=== PATIENT | male | born 1980 | race Caucasian/White ===

== ENCOUNTER 2017-08-23 01:51 | Emergency (ER) | payer BC, SELFPAY ==
[2017-08-23 02:52] LABS: #Basophils 0.1 thou/uL (0.0-0.2); #Eosinphils 0.4 thou/uL (0.0-0.7); #Lymphocytes 2.2 thou/uL (1.20-3.40); #Monocytes 0.5 thou/uL (0.11-0.59); %Basophils 0.8 % (0.0-1.0); %Eosinophils 3.5 % (0.0-10.0); %Lymphocytes 19.9 % (21.0-51.0); %Monocytes 4.8 % (0.0-10.0); Mean Platelet Volume 7.9 fL (7.4-10.4); Red Blood Cell (RBC) Count 5.03 mill/uL (4.70-6.10); White Blood Cell (WBC) Count 11.2 thou/uL (4.8-10.8)
[2017-08-23 03:05] LABS: ALT (SGPT) 19 U/L (8-55); AST (SGOT) 15 U/L (5-34); Alkaline Phosphatase 84 U/L (40-150); Anion Gap 11 mmol/L (10-20); BUN (Urea Nitrogen) 14 mg/dL (8.9-20.6); Bilirubin, Total 0.5 mg/dL (0.2-1.2); Calc. Creatinine Clearance 0 mL/min (70-130); Carbon Dioxide 29 mmol/L (22-29); Chloride 101 mmol/L (98-107); Estimated GFR-MDRD 72; Globulin 3.5 g/dL (2.4-3.5); Protein, Total 7.9 g/dL (6.0-8.3)
[2017-08-23 03:10] LABS: Troponin I Less than 0.010 ng/mL (< 0.028)
[2017-08-23] MEDS ORDERED: Ketorolac Tromethamine 60 MG/2 ML VIAL ONE (04:51)
[2017-08-23] MEDS ORDERED: Lidocaine Viscous Sol 2% 15 ml UD Cup ONE (04:51)
[2017-08-23] MEDS ORDERED: Mag-Al 1200 mg/1200 mg/30 ML UDCUP ONE (04:51)
[2017-08-23] MEDS ORDERED: HYDROcodone/Acetaminophen 10/325 mg Tablet ONE (04:51)
[2017-08-23 04:58] LABS: CK (CPK) 99 U/L (30-200); Lipase 23 U/L (8-78)
--- NOTE | 2017-08-23 07:09 | RAD ---
CHEST 2 VIEWS: Date: 08/23/17 HISTORY: Chest pain x1 week. COMPARISON: 08/12/11. FINDINGS: Normal cardiac silhouette. Pulmonary vessels and hilum are normal. Costophrenic angles are clear. No consolidation or mass. No pneumothorax or osseous abnormalities. IMPRESSION: No acute cardiopulmonary process. POS: PPP
== END 2017-08-23 05:21 | disposition home or self-care (01) ==
LOC: ERS 01:51
DX: K21.0 Gastro-esophageal reflux disease with esophagitis (principal); F17.210 Nicotine dependence, cigarettes, uncomplicated; Z79.899 Other long term (current) drug therapy
CPT/HCPCS: 36415; 71020; 80053; 82553; 83690; 83880; 84484; 85025; 93005; 96372; J1885

== ENCOUNTER 2023-02-19 17:58 | Emergency (ER) | payer BC, SELFPAY ==
[~2023-02-19 17:58] MED LIST: Iopamidol-370 76% 500 ML MDV (1 ML CHARGE) ONE
[2023-02-19] MEDS ORDERED: Vancomycin 1 GM/200 ML (FROZEN) BAG ONE ×2 (18:10→19:18)
[2023-02-19] MEDS ORDERED: Cefepime 2 GM VIAL ONE (18:10)
[2023-02-19 18:22] LABS: #Basophils 0.1 thou/uL (0.0-0.2); #Eosinphils 0.1 thou/uL (0.0-0.7); #Monocytes 0.5 thou/uL (0.11-0.59); #Neutrophils 5.7 thou/uL (1.40-6.50); %Basophils 0.7 % (0.0-1.0); %Eosinophils 1.5 % (0.0-10.0); %Lymphocytes 11.7 % (21.0-51.0); %Monocytes 7.1 % (0.0-10.0); %Neutrophils 78.7 % (42.0-75.0); Hemoglobin 14.4 g/dL (14.0-18.0); Mean Corpuscular HGB CONC 34.4 g/dL (32.0-36.0); Mean Corpuscular Hemoglobin 30.2 pg (27.0-31.0); Mean Corpuscular Volume 87.8 fl (78.0-98.0); Mean Platelet Volume 9.6 fL (7.4-10.4); Platelet Count 214 10x3/uL (130-400); RBC Distribution Width 13.4 % (11.5-14.5); Red Blood Cell (RBC) Count 4.77 mill/uL (4.70-6.10); White Blood Cell (WBC) Count 7.2 10x3/uL (4.8-10.8)
[2023-02-19 18:24] LABS: Actual Bicarbonate (HCO3v) 22.6 mEq/L (22-28); Base Excess -0.5 mEq/L (-2.0 to +3.0); Calcium, Ionized (venous) 1.07 mmol/L (1.16-1.32); Chloride (VBG) 100 mmol/L (98-106); Hematocrit-VBG 45 % (42.0-52.0); Hemoglobin (Hb) 15.3 g/dL (13.2-17.3); Potassium (VBG) 3.88 mmol/L (3.70-5.30); Sodium 135.1 mmol/L (133-146); pH (venous) 7.453 (7.32-7.43)
[2023-02-19 18:50] LABS: ALT (SGPT) 27 U/L (8-55); AST (SGOT) 21 U/L (5-34); Albumin 4.4 g/dL (3.5-5.0); Alkaline Phosphatase 82 U/L (40-110); Anion Gap 14 mmol/L (10-20); BUN (Urea Nitrogen) 13 mg/dL (8.9-20.6); Bilirubin, Total 0.5 mg/dL (0.2-1.2); Calc. Creatinine Clearance 0 mL/min (70-130); Calcium 9.5 mg/dL (7.8-10.44); Carbon Dioxide 25 mmol/L (22-29); Chloride 99 mmol/L (98-107); Estimated GFR 55; Globulin 3.4 g/dL (2.4-3.5); Glucose 147 mg/dL (70-105); Potassium 3.8 mmol/L (3.5-5.1); Protein, Total 7.8 g/dL (6.0-8.3); Sodium 134 mmol/L (136-145)
[2023-02-19 19:41] LABS: SARS-CoV-2 NAA Rapid Test Not Detected (NotDetected)
[2023-02-19 20:21] LABS: Bacteria/HPF None Seen HPF (None Seen); Bilirubin Negative (Negative); Blood, Urine Negative (Negative); CAUTI Indications for Culture Fever or rigors; Clarity Clear (Clear); Glucose, Urine (Dipstick) Normal (Negative); Ketone, Urine Negative (Negative); Leukocyte Negative Leu/uL (Negative); Nitrite Negative (Negative); Protein, Urine (Dipstick) Negative (Neg-Trace); RBC/HPF None Seen HPF (0-3); Specific Gravity, Urine 1.027 (1.002-1.036); Squamous Epithelial None Seen HPF (0-3); Urobilinogen Normal mg/dL (Less than 2); WBC/HPF 0-3 HPF (0-3)
[2023-02-19 20:40] LABS: Urine Culture Reflex No No
[2023-02-19] MEDS ORDERED: Ketorolac Tromethamine 30 MG/ML VIAL ONE (21:55)
== END 2023-02-19 22:10 | disposition home or self-care (01) ==
LOC: ERS 17:58
DX: R50.9 Fever, unspecified (principal); R00.0 Tachycardia, unspecified; Z20.822 Contact with and (suspected) exposure to COVID-19; K21.9 Gastro-esophageal reflux disease without esophagitis; F17.290 Nicotine dependence, other tobacco product, uncomplicated
CPT/HCPCS: 36415; 71045; 74177; 80053; 81001; 82805; 83605; 85025; 87040; 87086; 93005; 96361; 96365; 96367; 96375; J0692; J1885; J3370-JW; Q9967

== ENCOUNTER 2023-09-28 09:31 | Outpatient (CLI) | payer BC ==
[2023-09-28 10:30] LABS: #Basophils 0.1 10x3/uL (0.0-0.2); #Eosinphils 0.3 10x3/uL (0.0-0.5); #Monocytes 0.4 10x3/uL (0.0-1.1); #Neutrophils 4.1 10x3/uL (1.5-8.4); %Basophils 1.1 % (0.0-2.0); %Eosinophils 4.1 % (0.0-6.0); %Monocytes 6.3 % (0.0-10.0); %Neutrophils 62.9 % (40.0-75.0); Hematocrit 43.3 % (38.8-50.0); Hemoglobin 14.6 g/dL (13.5-17.5); Mean Corpuscular HGB CONC 33.7 g/dL (32.0-36.0); Mean Corpuscular Hemoglobin 29.1 pg (27.0-33.0); Mean Corpuscular Volume 86.4 fl (81.2-95.1); Mean Platelet Volume 10.1 fl (7.4-10.4); Platelet Count 259 10x3/uL (150-450); RBC Distribution Width 13.9 % (11.5-14.5); Red Blood Cell (RBC) Count 5.01 10x6/uL (4.32-5.72); White Blood Cell (WBC) Count 6.5 10x3/uL (3.5-10.5)
[2023-09-28 11:09] LABS: Anion Gap 13 mmol/L (10-20); BUN (Urea Nitrogen) 14 mg/dL (8.9-20.6); Calc. Creatinine Clearance 0 mL/min (70-130); Calcium 9.5 mg/dL (7.8-10.44); Carbon Dioxide 26 mmol/L (22-29); Chloride 104 mmol/L (98-107); Estimated GFR 91; Glucose 123 mg/dL (70-105); Potassium 4.6 mmol/L (3.5-5.1); Sodium 138 mmol/L (136-145)
== END 2023-09-28 09:32 | disposition home or self-care (01) ==
LOC: LABBT 09:31
PROVIDERS: ATTEND Surgery
DX: Z01.812 Encounter for preprocedural laboratory examination (principal); S31.109A Unspecified open wound of abdominal wall, unspecified quadrant without penetration into peritoneal cavity, initial encounter
CPT/HCPCS: 80048; 85025

== ENCOUNTER 2023-10-05 09:41 | Day surgery (SDC) | payer BC ==
[2023-09-28 10:03] VITALS: BMI 34.8
[2023-10-05] MEDS ORDERED: fentaNYL 50 mcg/mL 1 mL Vial ONE ×2 (11:04→13:33)
[2023-10-05] MEDS ORDERED: PROPOFOL 20 ML ONE (11:04)
[2023-10-05] MEDS ORDERED: Lidocaine 1% PF 5 ML VIAL ONE (11:06)
[2023-10-05] MEDS ORDERED: Ondansetron PF 4 MG/2 ML Vial ONE ×2 (11:17→12:25)
[2023-10-05] MEDS ORDERED: Ketorolac Tromethamine 30 MG (1 mL) VIAL ONE ×2 (11:17→13:02)
[2023-10-05] MEDS ORDERED: Bupivacaine 0.25% HCL 30 ML VIAL ONE (12:00)
[2023-10-05] MEDS ORDERED: EPINEPHrine 1 MG/ML VIAL ONE (12:00)
[2023-10-05] MEDS ORDERED: Sodium Chloride 0.9% 100 ML ONE (12:07)
[2023-10-05] MEDS ORDERED: CEFAZOLIN 2 GM VIAL ONE (12:07)
[2023-10-05] MEDS ORDERED: Dexamethasone 20 MG/5 ML VIAL ONE (12:25)
== END 2023-10-05 15:20 | disposition home or self-care (01) ==
LOC: SDC 09:41
PROVIDERS: ATTEND Surgery
PROC: 0H89XZZ Division of Perineum Skin, External Approach (ICD-10-PCS; principal; 2023-10-05)
DX: S31.109A Unspecified open wound of abdominal wall, unspecified quadrant without penetration into peritoneal cavity, initial encounter (principal); K60.3 Anal fistula; K21.9 Gastro-esophageal reflux disease without esophagitis; F17.290 Nicotine dependence, other tobacco product, uncomplicated; Z79.899 Other long term (current) drug therapy; Z88.5 Allergy status to narcotic agent; X58.XXXA Exposure to other specified factors, initial encounter
CPT/HCPCS: 88305; J0171; J0665; J1100; J1885; J2405; J2704; J3010; J3490

== ENCOUNTER 2024-06-22 13:58 | Emergency (ER) | payer BC ==
[2024-06-22 15:35] LABS: #Basophils 0.03 10x3/uL (0.0-0.2); %Basophils 0.3 % (0.0-1.0); %Eosinophils 2.9 % (0.0-10.0); %Lymphocytes 13.7 % (21.0-51.0); %Monocytes 4.7 % (0.0-10.0); %Neutrophils 78.1 % (42.0-75.0); Hematocrit 41.9 % (42.0-52.0); Hemoglobin 14.3 g/dL (14.0-18.0); Mean Corpuscular HGB CONC 34.1 g/dL (32.0-36.0); Mean Corpuscular Volume 87.8 fL (78.0-98.0); Mean Platelet Volume 10.4 fL (7.4-10.4); Platelet Count 222 10x3/uL (130-400); RBC Distribution Width 13.5 % (11.5-14.5); Red Blood Cell (RBC) Count 4.77 mill/uL (4.70-6.10)
[2024-06-22 15:55] LABS: ALT (SGPT) 22 U/L (8-55); AST (SGOT) 17 U/L (5-34); Alkaline Phosphatase 78 U/L (40-110); Anion Gap 11 mmol/L (10-20); BUN (Urea Nitrogen) 7 mg/dL (8.9-20.6); Bilirubin, Total 0.6 mg/dL (0.2-1.2); Calc. Creatinine Clearance 0 mL/min (70-130); Calcium 9.3 mg/dL (7.8-10.44); Carbon Dioxide 27 mmol/L (22-29); Chloride 104 mmol/L (98-107); Estimated GFR 108; Globulin 3.1 g/dL (2.4-3.5); Glucose 144 mg/dL (70-105); Potassium 4.1 mmol/L (3.5-5.1); Protein, Total 7.1 g/dL (6.0-8.3); Sodium 138 mmol/L (136-145)
[2024-06-22 15:59] LABS: Troponin I Less than 0.010 ng/mL (< 0.028)
== END 2024-06-22 16:51 | disposition home or self-care (01) ==
LOC: ERS 13:58
DX: R06.02 Shortness of breath (principal); K21.9 Gastro-esophageal reflux disease without esophagitis; F17.290 Nicotine dependence, other tobacco product, uncomplicated; Z55.6 Problems related to health literacy
CPT/HCPCS: 36415; 71045; 80053; 84484; 85025; 93005